=== PATIENT | female | born 1985 | race Caucasian/White ===

== ENCOUNTER 2017-05-23 13:25 | Emergency (ER) | payer MEDICARE, MEDICAID ==
[2017-05-23 14:28] LABS: CHLORIDE,CL 106 mmol/L (101-111); SODIUM,NA 135 mmol/L (135-145)
--- NOTE | 2017-05-23 14:28 | EDM.PDOC ---
ED HPI GENERAL MEDICAL PROBLEM - General Stated Complaint: [id number] HEART PALAPTATIONS Time Seen by Provider: 05/23/17 14:15 Source of Information: Reports: Patient History Limitations: Reports: No Limitations - History of Present Illness INITIAL COMMENTS - FREE TEXT/NARRATIVE: This 32 yo female patient reports to the ED with intermittent chest pains and palpitations. The patient has a history of cardiac valve replacement with stenosis. The patient reports she has been having symptoms since she has been having left sided chest fluttering. The patient did call her clinical lab specialist and was encouraged to come into the ED to get checked. Onset: Today Duration: Intermittent Location: Reports: Chest Quality: Reports: Dull Severity: Moderate Improves with: Reports: None Worsens with: Reports: None Associated Symptoms: Reports: Chest Pain - Related Data Allergies Allergy/AdvReac Type Severity Reaction Status Date / Time Penicillins Allergy Hives Verified 05/23/17 13:43 Home Meds: Home Meds FLUoxetine HCl [Fluoxetine HCl] 1 tab PO BEDTIME 05/23/17 [History] Hydroxychloroquine [Plaquenil] 1 tab PO BEDTIME 05/23/17 [History] Mycophenolate Mofetil 3 tab PO BEDTIME 05/23/17 [History] Spironolactone [Aldactone] 1 tab PO BEDTIME 05/23/17 [History] Topiramate [Topiramate] 1 tab PO BEDTIME 05/23/17 [History] Warfarin Sodium [Jantoven] 1 tab PO BEDTIME 05/23/17 [History] ED ROS GENERAL - Review of Systems Review Of Systems: ROS reveals no pertinent complaints other than HPI. ED EXAM, GENERAL - Physical Exam Exam: See Below Exam Limited By: No Limitations General Appearance: Alert, WD/WN, Moderate Distress Eye Exam: Bilateral Eye: EOMI, Normal Inspection, PERRL Ears: Normal External Exam, Normal Canal, Hearing Grossly Normal, Normal TMs Nose: Normal Inspection, Normal Mucosa, No Blood Throat/Mouth: Normal Inspection, Normal Lips, Normal Teeth, Normal Gums, Normal Oropharynx, Normal Voice, No Airway Compromise Head: Atraumatic, Normocephalic Neck: Normal Inspection, Supple, Non-Tender, Full Range of Motion Respiratory/Chest: No Respiratory Distress, Lungs Clear, Normal Breath Sounds, No Accessory Muscle Use, Chest Non-Tender Cardiovascular: Normal Peripheral Pulses, Regular Rate, Rhythm, No Edema, No Gallop, No JVD, Diastolic Murmur, Systolic Murmur GI/Abdominal: Normal Bowel Sounds, Soft, Non-Tender, No Organomegaly, No Distention, No Abnormal Bruit, No Mass (Female) Exam: Deferred Rectal (Female) Exam: Deferred Back Exam: Normal Inspection, Full Range of Motion, NT Extremities: Normal Inspection, Normal Range of Motion, Non-Tender, Normal Capillary Refill, No Pedal Edema Neurological: Alert, Oriented, CN II-XII Intact, Normal Cognition, Normal Gait, Normal Reflexes, No Motor/Sensory Deficits Psychiatric: Normal Affect, Normal Mood Skin Exam: Warm, Dry, Intact, Normal Color, No Rash Lymphatic: No Adenopathy Course - Vital Signs Last Recorded V/S: Last Vital Signs Temp 37.6 C 05/23/17 13:34 Pulse 63 05/23/17 13:34 Resp 20 05/23/17 13:34 BP 139/75 05/23/17 13:34 Pulse Ox 100 05/23/17 13:34 - Orders/Labs/Meds Orders: Active Orders 24 hr Category Date Time Status EKG Documentation Completion [RC] URGENT Care 05/23/17 13:53 Active Labs: Laboratory Tests 05/23/17 05/23/17 Range/Units 14:02 14:02 WBC 4.9 L (5.0-10.0) 10^3/uL RBC 3.91 L (4.2-5.4) 10^6/uL Hgb 12.1 (12.0-16.0) g/dL Hct 37.0 (37.0-47.0) % MCV 94.6 (80-100) fL MCH 30.9 (27.0-34.0) pg MCHC 32.7 L (33.0-35.0) g/dL Plt Count 161 (150-450) 10^3/uL Neut % (Auto) 72.7 (42.2-75.2) % Lymph % (Auto) 20.0 L (20.5-50.1) % [place] % (Auto) 6.5 (2-8) % Eos % (Auto) 0.6 L (1.0-3.0) % Baso % (Auto) 0.2 (0.0-1.0) % Sodium 135 (135-145) mmol/L Potassium 3.9 (3.6-5.0) mmol/L Chloride 106 (101-111) mmol/L Carbon Dioxide 22.0 (21.0-31.0) mmol/L Anion Gap 10.9 BUN 16 (7-18) mg/dL Creatinine 0.9 (0.6-1.3) mg/dL Est Cr Clr Drug Dosing TNP Estimated GFR (MDRD) > 60 BUN/Creatinine Ratio 17.77 Glucose 80 (74-105) mg/dL Calcium 8.6 (8.4-10.2) mg/dl Total Bilirubin 0.6 (0.2-1.0) mg/dL AST 21 (10-42) IU/L ALT 19 (10-60) IU/L Alkaline Phosphatase 42 (42-121) IU/L Troponin I < 0.02 (0.00-0.02) ng/ml Total Protein 6.6 L (6.7-8.2) g/dl Albumin 4.0 (3.2-5.5) g/dl Globulin 2.6 Albumin/Globulin Ratio 1.54 Departure - Departure Time of Disposition: 15:07 Disposition: Home, Self-Care 01 Condition: Fair Clinical Impression: Non-cardiac chest pain Instructions: Nonspecific Chest Pain, [id number] Forms: ED Department Discharge Care Plan Goals: The patient was advised of the examination, lab, EKG and x-ray results during the visit. The patient was encouraged to continue to monitor her symptoms or concerns. If the patient has any additional symptoms or concerns, the patient should follow-up with her primary care facility or return to the emergency department. - My Orders Last 24 Hours: My Active Orders 05/23/17 13:53 EKG Documentation Completion [RC] URGENT - Assessment/Plan Last 24 Hours: My Active Orders 05/23/17 13:53 EKG Documentation Completion [RC] URGENT
--- NOTE | 2017-05-23 14:46 | CR ---
Clinical history: 32-year-old female with heart "palpitations". Interpretation: Upright AP portable chest film demonstrates external cardiac surgeon leads and sterno delbert wires. Slight left ventricular configuration but overall normal size without cephalization of flow, signs of alveolar edema or dependent effusion. No pathologic coronary artery or valvular calcifications (appa rent aortic valve prosthesis). No lung mass, hilar lymphadenopathy or focal lobar pneumonia. No atelectasis/collapse. No pneumothorax or free subdiaphragmatic air. Conclusion: Surgery. No acute cardiopulmonary abnormality.
--- NOTE | 2017-05-30 09:53 | EKG ---
05/23/2017- MELINA CUNNINGHAM - FINDINGS: EKG, per my reading, shows sinus bradycardia at the rate of 58. MOD /[id number]
== END 2017-05-23 15:24 | disposition home or self-care (01) ==
LOC: DL.ED 13:25
DX: R07.89 Other chest pain (principal); Z88.0 Allergy status to penicillin; Z79.01 Long term (current) use of anticoagulants
CPT/HCPCS: 36415; 71045; 80053; 84484; 85025; 87804; 93005; 93010; 99283; 99285

== ENCOUNTER 2017-08-05 09:53 | Emergency (ER) | payer MEDICARE, OTHER ==
[2017-08-05] MEDS ORDERED: Sulfamethoxazole/Trimethoprim 800-160 MG Tab PO ONE (09:54)
[2017-08-05] MEDS ORDERED: Acetaminophen/oxyCODONE 325-5 MG Tab PO ONE (09:54)
[2017-08-05] MEDS ORDERED: Ondansetron 4 MG/2 ML SDV IM ONE (10:20)
[2017-08-05] MEDS ORDERED: Morphine 2 MG/ML Syringe IM ONE (10:20)
[2017-08-05] MEDS ORDERED: Lidocaine 2% Viscous Solution 100 ML Bottle PO ONE (10:41)
[2017-08-05] MEDS ORDERED: Lidocaine 2% Viscous Solution 15 ML Cup ONE (10:47)
[2017-08-05] MEDS ORDERED: Sulfamethoxazole/Trimethoprim 800-160 MG Tab ONE (11:03)
[2017-08-05] MEDS ORDERED: Acetaminophen/oxyCODONE 325-5 MG Tab ONE (11:03)
--- NOTE | 2017-08-05 11:04 | EDM.PDOC ---
ED HPI GENERAL MEDICAL PROBLEM - General Chief Complaint: Genitourinary Problem Stated Complaint: [id number] VAGINAL CYST Time Seen by Provider: 08/05/17 10:10 Source of Information: Reports: Patient, RN Notes Reviewed History Limitations: Reports: No Limitations - History of Present Illness INITIAL COMMENTS - FREE TEXT/NARRATIVE: Patient presents to ER with complaint of a lump in the vaginal that she first noticed on . She states it has progressively gotten larger and more painful. Patient staets last time this happened was about 1 year ago. Her pain is a 6/10. She has had positive night sweats but no fever, nausea, some vaginal discharge. No vomiting or diarrhea. She first noticed this A.M. She was at [place] on Sunday through Sunday. Onset: Gradual Duration: Getting Worse Quality: Reports: Ache Severity: Moderate Improves with: Reports: None Worsens with: Reports: None Associated Symptoms: Reports: No Other Symptoms Vaginal Pain Score (Numeric/FACES): 10 - Related Data Allergies Allergy/AdvReac Type Severity Reaction Status Date / Time Penicillins Allergy Hives Verified 08/05/17 09:57 Home Meds: Home Meds FLUoxetine HCl [Fluoxetine HCl] 1 tab PO BEDTIME 05/23/17 [History] Hydroxychloroquine [Plaquenil] 1 tab PO BEDTIME 05/23/17 [History] Mycophenolate Mofetil 3 tab PO BEDTIME 05/23/17 [History] Spironolactone [Aldactone] 1 tab PO BEDTIME 05/23/17 [History] Topiramate 1 tab PO BEDTIME 05/23/17 [History] Warfarin Sodium [Jantoven] 1 tab PO BEDTIME 05/23/17 [History] Past Medical History HEENT History: Reports: None Cardiovascular History: Reports: Heart Murmur, Heart Valve Replacement, Other ( See Below) Other Cardiovascular History: Aortic Valve replaced 9 years ago and now has stenosis to valve. Has mitral valve regurgitation, murmur. Had tricuspid valve repair. States problems are a result of her lupus. Respiratory History: Reports: None Gastrointestinal History: Reports: None Genitourinary History: Reports: None, Other (See Below) Other Genitourinary History: vaginal cyst Musculoskeletal History: Reports: Arthritis Neurological History: Reports: None Psychiatric History: Reports: Anxiety, Depression Hematologic History: Reports: None Immunologic History: Reports: Other (See Below) Other Immunologic History: Lupus Oncologic (Cancer) History: Reports: Cervix - Past Surgical History Cardiovascular Surgical History: Reports: Valve Replacement Female Surgical History: Reports: Hysterectomy, Other (See Below) Other Female Surgeries/Procedures: partial hysterectomy due to Cervical cancerous 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 No treatment needed other than surgery. Oncologic Surgical History: Reports: Other (See Below) Other Oncologic Surgeries/Procedures: partial hysterectomy Social & Family History - Family History Family Medical History: Noncontributory - Tobacco Use Smoking Status *Q: Never Smoker Second Hand Smoke Exposure: No - Caffeine Use Caffeine Use: Reports: Coffee, Soda Other Caffeine Use: had 1 cup today - Recreational Drug Use Recreational Drug Use: No ED ROS GENERAL - Review of Systems Review Of Systems: ROS reveals no pertinent complaints other than HPI. ED EXAM, SKIN/RASH Exam: See Below Exam Limited By: No Limitations General Appearance: Alert, WD/WN, No Apparent Distress Eye Exam: Bilateral Eye: Normal Inspection Ears: Normal External Exam, Normal Canal, Hearing Grossly Normal, Normal TMs Nose: Normal Inspection, Normal Mucosa, No Blood Throat/Mouth: Normal Inspection, Normal Lips, Normal Teeth, Normal Gums, Normal Oropharynx, Normal Voice, No Airway Compromise Head: Atraumatic, Normocephalic Neck: Normal Inspection, Supple, Non-Tender, Full Range of Motion Respiratory/Chest: No Respiratory Distress, Lungs Clear, Normal Breath Sounds, No Accessory Muscle Use, Chest Non-Tender Cardiovascular: Systolic Murmur (+2/3) GI/Abdominal: Normal Bowel Sounds, Soft, Non-Tender, No Organomegaly, No Distention, No Abnormal Bruit, No Mass (Female) Exam: Other (large Bartholin's cyst. ) Rectal (Female) Exam: Deferred Back Exam: Normal Inspection, Full Range of Motion, NT Extremities: Normal Inspection, Normal Range of Motion, Non-Tender, No Pedal Edema, Normal Capillary Refill Neurological: Alert, Oriented, CN II-XII Intact, Normal Cognition, Normal Gait, Normal Reflexes, No Motor/Sensory Deficits Skin: Warm, Dry, Intact, Normal Color, No Rash Lymphatic: No Adenopathy Course - Vital Signs Last Recorded V/S: Last Vital Signs Temp 97.8 F 08/05/17 09:59 Pulse 108 H 08/05/17 09:59 Resp 18 08/05/17 09:59 BP 134/92 H 08/05/17 09:59 Pulse Ox 100 08/05/17 09:59 - Orders/Labs/Meds Meds: Medications Discontinued Medications Generic Name Dose Route Start Last Admin Trade Name Chito PRN Reason Stop Dose Admin Lidocaine HCl 20 ml 08/05/17 10:41 08/05/17 10:50 Xylocaine 2% Viscous PO 08/05/17 10:42 Not Given ONETIME ONE Lidocaine HCl Confirm 08/05/17 10:47 08/05/17 10:51 Xylocaine 2% Viscous Administered 08/05/17 10:48 30 ml Dose Administration 30 ml .ROUTE .STK-MED ONE Morphine Sulfate 2 mg 08/05/17 10:20 08/05/17 10:27 Morphine IM 08/05/17 10:21 2 mg ONETIME ONE Administration Ondansetron HCl 4 mg 08/05/17 10:20 08/05/17 10:27 Zofran IM 08/05/17 10:21 4 mg ONETIME ONE Administration Oxycodone/Acetaminophen Confirm 08/05/17 11:03 08/05/17 11:08 Percocet 325-5 Mg Administered 08/05/17 11:04 Not Given Dose 2 tab .ROUTE .STK-MED ONE Trimethoprim/Sulfamethoxazole Confirm 08/05/17 11:03 08/05/17 11:08 Septra Ds Administered 08/05/17 11:04 Not Given Dose 2 tab .ROUTE .STK-MED ONE Departure - Departure Time of Disposition: 11:02 Disposition: Home, Self-Care 01 Condition: Fair Clinical Impression: Bartholin cyst - Discharge Information Instructions: Pain Medicine Instructions, [id number], Bartholin Cyst or Abscess, [id number] Forms: ED Department Discharge Additional Instructions: RX: Bactrim Sent home: Bactrim 2, Percocet 2 Follow up with your primary care facility
== END 2017-08-05 11:10 | disposition home or self-care (01) ==
LOC: DL.ED 09:53
DX: N75.0 Cyst of Bartholin's gland (principal); Z88.0 Allergy status to penicillin; Z90.710 Acquired absence of both cervix and uterus
CPT/HCPCS: 96372; 99283; A9270; J2270; J2405